=== PATIENT | female | born 1980 | race Caucasian/White ===

== ENCOUNTER 2021-01-21 14:30 | Emergency (ER) | payer OTHER ==
[~2021-01-21] VITALS: Ht 165.1 cm; Wt 72.5 kg
[2021-01-21] MEDS ORDERED: ACET160S6 FT (14:39)
--- NOTE | 2021-01-21 15:09 | REP ---
INDICATION: pain/unable to bear weight COMPARISON: None. TECHNIQUE: AP, lateral, bilateral oblique views. FINDINGS: No acute fracture or dislocation. Skeletal structures and joint spaces are intact and normal. Ankle mortise appears stable. No subcutaneous emphysema or radiodense foreign body. IMPRESSION: Normal age-appropriate right ankle radiograph series. <Electronically signed by Oren Crawford > 01/21/21 [id number]
--- NOTE | 2021-01-21 15:11 | REP ---
INDICATION: pain/unable to bear weight COMPARISON: None. TECHNIQUE: AP, lateral, bilateral oblique views right foot. FINDINGS: No definite evidence for acute fracture or dislocation. Very subtle cortical irregularity at the base of the 4th and 5th metatarsal bones is likely insignificant although subtle subacute injury cannot be excluded and should be correlated with the possibility of recent trauma. Remainder of the examination is essentially age-appropriate and within normal limits. No subcutaneous emphysema or foreign body. IMPRESSION: No definite acute fracture or dislocation. As above. <Electronically signed by Oren Crawford > 01/21/21 [id number]
[2021-01-21] MEDS ORDERED: KETOROLAC TROMETHAMINE 10 MG TAB PO ONE (21:35)
--- OUTSIDE RECORDS SUMMARY | 2021-01-21 22:01 | CCD ---
Author Author [facility] Address Unknown Phone Unavailable Support Name Relationship Address Phone UE Next Of Kin Unknown Unavailable Re-disclosure Warning The records that you are about to access may contain information from federally-assisted alcohol or drug abuse programs. If such information is present, then the following federally mandated warning applies: This information has been disclosed to you from records protected by federal confidentiality rules (42 CFR part 2). The federal rules prohibit you from making any further disclosure of this information unless further disclosure is expressly permitted by the written consent of the person to whom it pertains or as otherwise permitted by 42 CFR part 2. A general authorization for the release of medical or other information is NOT sufficient for this purpose. The Federal rules restrict any use of the information to criminally investigate or prosecute any alcohol or drug abuse patient.The records that you are about to access may contain highly sensitive health information, the redisclosure of which is protected by Article 27-F of the [facility] Public Health law. If you continue you may have access to information: Regarding HIV / AIDS; Provided by facilities licensed or operated by the [facility] Office of Mental Health; or Provided by the [facility] Office for People With Developmental Disabilities. If such information is present, then the following [facility] mandated warning applies: This information has been disclosed to you from confidential records which are protected by state law. State law prohibits you from making any further disclosure of this information without the specific written consent of the person to whom it pertains, or as otherwise permitted by law. Any unauthorized further disclosure in violation of state law may result in a fine or mcfp sentence or both. A general authorization for the release of medical or other information is NOT sufficient authorization for further disc losure. Medications No Information Insurance Providers Payer name Policy type / Coverage type Policy ID Covered republican ID Covered republican's relationship to aleman Policy [employer] Plan Information [facility] [id number] Problems, Conditions, and Diagnoses No Information Surgeries/Procedures No Information Results No Information Social History No Information
[2021-01-21 22:34] VITALS: BP 171/96
== END 2021-01-21 22:36 | disposition home or self-care (01) ==
LOC: M ED 14:30
DX: S99.911A Unspecified injury of right ankle, initial encounter (principal); X58.XXXA Exposure to other specified factors, initial encounter; Y92.009 Unspecified place in unspecified non-institutional (private) residence as the place of occurrence of the external cause; Y93.89 Activity, other specified; Y99.8 Other external cause status; F17.290 Nicotine dependence, other tobacco product, uncomplicated; Z88.0 Allergy status to penicillin

== ENCOUNTER → 2021-02-07 | Outpatient (CLI) | payer OTHER ==
[~2021-02-07] MED LIST: ACET160S6 FT
== END ==
LOC: M SOG 11:21
PROVIDERS: ATTEND Orthopaedic Surgery
DX: M79.671 Pain in right foot (principal)